=== PATIENT | female | born 1945 | race African-American/Black ===

== ENCOUNTER → 2019-11-05 | Outpatient (CLI) | payer MEDICARE ==
[~2019-11-05] MED LIST: LISINOPRIL20 MG PO
== END ==
LOC: COL.RAD 13:00
DX: I71.4 Abdominal aortic aneurysm, without rupture (principal); I70.0 Atherosclerosis of aorta; I70.1 Atherosclerosis of renal artery; I70.208 Unspecified atherosclerosis of native arteries of extremities, other extremity; I70.203 Unspecified atherosclerosis of native arteries of extremities, bilateral legs
CPT/HCPCS: Q9967

== ENCOUNTER 2020-09-18 15:15 | Emergency (ER) | payer MEDICARE ==
[~2020-09-18] VITALS: Ht 157.5 cm; Wt 44.5 kg
[2020-09-18 15:25] VITALS: TEMP 97.7
[2020-09-18 17:36] LABS: BASO # 0.1 (0.0-0.2); BASO % 0.9 % (0.0-2.0); EOS # 0.2 (0.0-0.7); EOS % 1.8 % (0-4.0); GRAN % 70.3 % (42.2-75.2); LYMPH % 20.3 % (20.0-51.0); MEAN CELL VOLUME 94 fl (80.0-100.0); MEAN CORPUSCULAR HEMOGLOBIN 29 pg (27.0-31.0); MEAN CORPUSCULAR HGB CONC 31 g/dl (33.0-37.0); MEAN PLATELET VOLUME 8.8 fl (7.4-10.4); MONO # 0.6 (0.1-0.6); MONO % 6.3 % (1.7-9.3); PLATELET COUNT 511 K/mm3 (130-400); RED BLOOD COUNT 3.41 M/mm3 (4.10-5.30); REDCELL DISTRIBUTION WIDTH-CV 14.1 % (11.5-14.5)
[2020-09-18 17:48] LABS: ALANINE AMINOTRANSFERASE 12 U/L (4-34); ALBUMIN 3.8 gm/dL (3.5-5.0); ALKALINE PHOSPHATASE 87 U/L (50-136); ANION GAP 6 mmol/L (7-16); AST,SGOT 26 U/L (15-37); BILIRUBIN,TOTAL 0.3 mg/dL (0.0-1.0); BLOOD UREA NITROGEN 15 mg/dL (7-17); CALCIUM 8.9 mg/dL (8.4-10.2); CARBON DIOXIDE 23 mmol/L (22-30); CHLORIDE 109 mmol/L (98-107); CREATININE, serum 1.33 (0.52-1.25); GLUCOSE 105 mg/dL (74-106); POTASSIUM 4.8 mmol/L (3.4-5.0); SODIUM 138 mmol/L (137-145); TOTAL PROTEIN 7.2 gm/dL (6.4-8.2)
[2020-09-18 17:58] LABS: C-REACTIVE PROTEIN < 0.5 mg/dL (0.0-0.9)
[2020-09-18 19:11] LABS: COLLECTION METHOD CLEAN CATCH
[2020-09-18 19:18] LABS: MUCOUS Present /lpf; PH 5 (5-8); SQUAMOUS EPITHELIAL 0-2 /hpf; URINE APPEARANCE Clear; URINE BACTERIA None Seen /hpf; URINE BILIRUBIN Negative (NEGATIVE); URINE BLOOD Negative (NEGATIVE); URINE COLOR Yellow; URINE GLUCOSE Negative (NEGATIVE); URINE KETONE Negative (NEGATIVE); URINE LEUKOCYTE ESTERASE Negative (NEGATIVE); URINE NITRATE Negative (NEGATIVE); URINE PROTEIN(semi-quant) Negative (NEGATIVE); URINE RBC 0-2 /hpf; URINE UROBILINOGEN Negative (NEGATIVE)
[2020-09-18] MEDS ORDERED: PLAVIX 75MG TAB75 MG PO (19:53)
[2020-09-18] MEDS ORDERED: PRINIVIL20 MG PO (19:53)
[2020-09-18 20:05] VITALS: BP 146/88; PULSE 89
== END 2020-09-18 20:08 | disposition home or self-care (01) ==
LOC: COL.ER 15:15
PROVIDERS: Nurse Practitioner
DX: R10.30 Lower abdominal pain, unspecified (principal); F17.210 Nicotine dependence, cigarettes, uncomplicated; Z79.02 Long term (current) use of antithrombotics/antiplatelets
CPT/HCPCS: J3010; J7030; Q9967

== ENCOUNTER → 2021-04-20 | Outpatient (CLI) | payer MEDICARE ==
[~2021-04-20] MED LIST changes: +PLAVIX 75MG TAB75 MG PO; +PRINIVIL20 MG PO
== END ==
LOC: COL.RAD 11:06
DX: Z01.812 Encounter for preprocedural laboratory examination (principal); I71.4 Abdominal aortic aneurysm, without rupture; Z90.49 Acquired absence of other specified parts of digestive tract; Z90.89 Acquired absence of other organs; Z95.820 Peripheral vascular angioplasty status with implants and grafts
CPT/HCPCS: Q9967

== ENCOUNTER 2021-09-11 22:44 | Emergency (ER) | payer MEDICARE ==
[2021-09-11 22:45] VITALS: TEMP 98.8
[2021-09-11 23:09] LABS: BASO # 0.1 K/mm3 (0.0-0.2); BASO % 1.1 % (0.0-2.0); EOS # 0.2 K/mm3 (0.0-0.7); EOS % 1.9 % (0.0-4.0); GRAN # 7.1 K/mm3 (1.4-6.5); GRAN % 67.4 % (42.2-75.2); LYMPH % 19.2 % (20.0-51.0); MEAN CELL VOLUME 85 fl (80.0-100.0); MEAN CORPUSCULAR HGB CONC 31 g/dl (33.0-37.0); MEAN PLATELET VOLUME 8.4 fl (7.4-10.4); MONO # 1.1 K/mm3 (0.1-0.6); MONO % 10.1 % (1.7-9.3); PLATELET COUNT 440 K/mm3 (130-400); RED BLOOD COUNT 3.35 M/mm3 (4.10-5.30); REDCELL DISTRIBUTION WIDTH-CV 15.9 % (11.5-14.5)
[2021-09-11 23:14] LABS: HEMOGLOBIN 8.9 g/dl (12.5-16.0); MEAN CORPUSCULAR HEMOGLOBIN 27 pg (27-31)
[2021-09-11 23:15] LABS: HEMATOCRIT 28.3 % (37.0-47.0)
[2021-09-11 23:27] LABS: ALBUMIN 3.2 gm/dL (3.4-4.8); BILIRUBIN,TOTAL 0.2 mg/dL (0.2-1.2); CALCIUM 8.2 mg/dL (8.4-10.2); CREATININE, serum 1.2 mg/dL (0.57-1.11); POTASSIUM 4.1 mmol/L (3.5-4.5); TOTAL PROTEIN 6.8 gm/dL (6.2-8.1)
[2021-09-11 23:33] LABS: TROPONIN-I 0.022 ng/mL (0.00-0.033)
[2021-09-12 01:32] VITALS: BP 184/92; PULSE 96
[2021-09-12] MEDS ORDERED: ZOFRAN ODT4 MG PO (01:33)
[2021-09-12] MEDS ORDERED: ROXICODONE 55 MG/TAB PO (01:33)
== END 2021-09-12 01:32 | disposition home or self-care (01) ==
LOC: COL.ER 22:44
PROVIDERS: Student in an Organized Health Care Education/Training Program
DX: C34.92 Malignant neoplasm of unspecified part of left bronchus or lung (principal); J44.9 Chronic obstructive pulmonary disease, unspecified; Z79.02 Long term (current) use of antithrombotics/antiplatelets; Z87.891 Personal history of nicotine dependence
CPT/HCPCS: J2270; J2405; Q9967

== ENCOUNTER 2021-10-08 06:45 | Outpatient (CLI) | payer MEDICARE ==
--- NOTE | 2021-09-30 08:10 | NUR ---
called patient to leave message, mail box full
[2021-10-08] VITALS (16 sets, daily range): BP systolic 102–141; BP diastolic 52–86; PULSE 59–95; TEMP 97.8
[~2021-10-08] VITALS: Ht 157.5 cm; Wt 38.7 kg
[~2021-10-08 06:45] MED LIST changes: +FOLIC ACID 11 MG/TA1 PO; +FOLIC ACID0.4 MG PO; +NATURAL IRON65 MG PO; +ROXICODONE 55 MG/TAB PO; +ZOFRAN ODT4 MG PO
[2021-10-08] MEDS ORDERED: PRINIVIL20 MG PO (07:09)
[2021-10-08] MEDS ORDERED: TYLENOL W/COD1 UDTAB PO (07:11)
--- NOTE | 2021-10-08 07:55 | NUR ---
Pt to ct per ambulation. Pt positioned in prone position on ct table. Monitors applied and O2 on at 2l/nc.
--- NOTE | 2021-10-08 08:18 | NUR ---
Specimens obtained by Dr Pichardo and placed in formalin. Specimen labeled.
--- NOTE | 2021-10-08 12:00 | NUR ---
Discharge instructions given to pt.Pt verbalizes understanding.INT removed,cathetr tip intact.pt escorted out via wheelchair by this nurse.
== END 2021-10-08 13:38 ==
LOC: COL.RAD 06:45
DX: C34.12 Malignant neoplasm of upper lobe, left bronchus or lung (principal); R91.8 Other nonspecific abnormal finding of lung field
CPT/HCPCS: 32106

== ENCOUNTER → 2021-12-18 | Outpatient (CLI) | payer MEDICARE ==
[~2021-12-18] MED LIST changes: +TYLENOL W/COD1 UDTAB PO
== END ==
LOC: COL.RAD 09:23
DX: C34.32 Malignant neoplasm of lower lobe, left bronchus or lung (principal)
CPT/HCPCS: A9575

== ENCOUNTER 2022-02-05 23:16 | Emergency (ER) | payer MEDICARE ==
[~2022-02-05] VITALS: Ht 154.9 cm; Wt 37.3 kg
[2022-02-05 23:23] VITALS: TEMP 99.3
[2022-02-06 00:38] LABS: BASO % 0.2 % (0.0-2.0); EOS % 0.2 % (0.0-4.0); GRAN # 3.2 K/mm3 (1.4-6.5); GRAN % 76.1 % (42.2-75.2); LYMPH # 0.6 K/mm3 (1.2-3.4); LYMPH % 13.2 % (20.0-51.0); MEAN CELL VOLUME 87 fl (80.0-100.0); MEAN CORPUSCULAR HGB CONC 31 g/dl (33.0-37.0); MEAN PLATELET VOLUME 9.4 fl (7.4-10.4); MONO # 0.4 K/mm3 (0.1-0.6); MONO % 9.1 % (1.7-9.3); PLATELET COUNT 126 K/mm3 (130-400); RED BLOOD COUNT 3.44 M/mm3 (4.10-5.30); REDCELL DISTRIBUTION WIDTH-CV 15.1 % (11.5-14.5)
[2022-02-06 00:41] LABS: HEMATOCRIT 29.9 % (37.0-47.0); HEMOGLOBIN 9.4 g/dl (12.5-16.0); MEAN CORPUSCULAR HEMOGLOBIN 27 pg (27-31)
[2022-02-06 00:54] LABS: ALBUMIN 2.9 gm/dL (3.4-4.8); BILIRUBIN,TOTAL 0.3 mg/dL (0.2-1.2); CALCIUM 7.8 mg/dL (8.4-10.2); CREATININE, serum 0.82 mg/dL (0.57-1.11); POTASSIUM 3.7 mmol/L (3.5-4.5); TOTAL PROTEIN 5.8 gm/dL (6.2-8.1)
[2022-02-06 01:52] LABS: COLLECTION METHOD CLEAN CATCH
[2022-02-06 02:06] LABS: PH 7 (5-8); SQUAMOUS EPITHELIAL 0-2 /hpf (0-10); URINE APPEARANCE Clear (CLEAR/HAZY); URINE BACTERIA None Seen /hpf (NONE SEEN); URINE BILIRUBIN Negative (NEGATIVE); URINE BLOOD 1+ (NEGATIVE); URINE COLOR Yellow (YELLOW); URINE GLUCOSE Negative (NEGATIVE); URINE KETONE 1+ (NEGATIVE); URINE LEUKOCYTE ESTERASE Negative (NEGATIVE); URINE NITRATE Negative (NEGATIVE); URINE PROTEIN(semi-quant) Negative (NEGATIVE); URINE UROBILINOGEN Negative (NEGATIVE)
[2022-02-06 02:41] VITALS: BP 154/90; PULSE 88
== END 2022-02-06 02:41 | disposition home or self-care (01) ==
LOC: COL.ER 23:16
PROVIDERS: Emergency Medicine
DX: R11.2 Nausea with vomiting, unspecified (principal); C34.90 Malignant neoplasm of unspecified part of unspecified bronchus or lung; D61.818 Other pancytopenia; Z28.310 Unvaccinated for COVID-19
CPT/HCPCS: J2270; J2405; J7030

== ENCOUNTER → 2022-05-26 | Outpatient (CLI) | payer MEDICARE | LOC: COL.RAD 10:36 | DX: C34.90 Malignant neoplasm of unspecified part of unspecified bronchus or lung (principal) | CPT/HCPCS: Q9967 ==

== ENCOUNTER 2023-01-18 11:46 | Emergency (ER) | payer MEDICARE ==
[~2023-01-18] VITALS: Ht 157.5 cm; Wt 36.8 kg
[~2023-01-18 11:46] MED LIST changes: +ASPERCREME1 EACH TP; +NORCO 325 MG-51 TAB PO
[2023-01-18 12:01] VITALS: TEMP 97.8
[2023-01-18 12:47] LABS: BASO # 0.1 K/mm3 (0.0-0.2); BASO % 0.8 % (0.0-2.0); EOS # 0.2 K/mm3 (0.0-0.7); EOS % 2.5 % (0.0-4.0); GRAN # 5.2 K/mm3 (1.4-6.5); HEMOGLOBIN 11.8 g/dl (12.5-16.0); LYMPH # 0.9 K/mm3 (1.2-3.4); LYMPH % 12.9 % (20.0-51.0); MEAN CELL VOLUME 94 fl (80.0-100.0); MEAN CORPUSCULAR HEMOGLOBIN 31 pg (27-31); MEAN CORPUSCULAR HGB CONC 33 g/dl (33.0-37.0); MEAN PLATELET VOLUME 8.9 fl (7.4-10.4); MONO # 0.8 K/mm3 (0.1-0.6); MONO % 11.5 % (1.7-9.3); PLATELET COUNT 226 K/mm3 (130-400); RED BLOOD COUNT 3.85 M/mm3 (4.10-5.30); REDCELL DISTRIBUTION WIDTH-CV 15.4 % (11.5-14.5)
[2023-01-18 13:05] LABS: ALANINE AMINOTRANSFERASE 7 U/L (0-55); ALBUMIN 3.4 gm/dL (3.4-4.8); ALKALINE PHOSPHATASE 89 U/L (40-150); ANION GAP 10 mmol/L (7-16); AST,SGOT 13 U/L (5-34); BILIRUBIN,TOTAL 0.3 mg/dL (0.2-1.2); BLOOD UREA NITROGEN 11 mg/dL (10-20); CALCIUM 9.1 mg/dL (8.4-10.2); CARBON DIOXIDE 21 mmol/L (23-31); CHLORIDE 104 mmol/L (98-107); CREATININE, serum 1.15 mg/dL (0.57-1.11); GLUCOSE 105 mg/dL (70-99); POTASSIUM 4.3 mmol/L (3.5-4.5); SODIUM 135 mmol/L (136-145); TOTAL PROTEIN 6.5 gm/dL (6.2-8.1)
[2023-01-18 13:12] LABS: TROPONIN-I < 0.010 ng/mL (0.00-0.033)
[2023-01-18 15:48] VITALS: BP 160/86; PULSE 87
== END 2023-01-18 15:54 | disposition home or self-care (01) ==
LOC: COL.ER 11:46
PROVIDERS: Emergency Medicine
DX: R07.89 Other chest pain (principal); C34.90 Malignant neoplasm of unspecified part of unspecified bronchus or lung; T45.526A Underdosing of antithrombotic drugs, initial encounter; R79.89 Other specified abnormal findings of blood chemistry; Z91.138 Patient's unintentional underdosing of medication regimen for other reason; Z87.891 Personal history of nicotine dependence; Z20.822 Contact with and (suspected) exposure to COVID-19
CPT/HCPCS: Q9967

== ENCOUNTER 2023-11-25 13:28 | Emergency (ER) | payer MEDICARE, MEDICAID ==
[~2023-11-25] VITALS: Ht 154.9 cm; Wt 36.4 kg
[2023-11-25 13:35] VITALS: TEMP 98.5
[2023-11-25 15:15] VITALS: BP 144/90; PULSE 113
== END 2023-11-25 15:15 | disposition home or self-care (01) ==
LOC: COL.ER 13:28
DX: C34.92 Malignant neoplasm of unspecified part of left bronchus or lung (principal); R10.13 Epigastric pain; M40.204 Unspecified kyphosis, thoracic region; Z87.891 Personal history of nicotine dependence; Z90.49 Acquired absence of other specified parts of digestive tract